=== PATIENT | female | born 1940 | race Caucasian/White ===

== ENCOUNTER 2024-12-18 12:53 | Outpatient (CLI) | payer OTHER | END 2024-12-18 12:54 | disposition home or self-care (01) | LOC: BICMRI 12:53 | PROVIDERS: ATTEND Family Medicine | DX: R20.0 Anesthesia of skin (principal); M48.05 Spinal stenosis, thoracolumbar region; M48.061 Spinal stenosis, lumbar region without neurogenic claudication; M48.07 Spinal stenosis, lumbosacral region | CPT/HCPCS: 72148 ==